=== PATIENT | male | born 1960 | race Caucasian/White ===

== ENCOUNTER 2018-01-24 12:02 | Inpatient (IN) | payer MEDICARE, OTHER ==
[~2018-01-24] VITALS: Ht 177.8 cm; Wt 127.0 kg
[~2018-01-24 12:02] MED LIST: ALBU90OI61 INH; Amlodipine-Ben1 EACH PO; ENOX40I SC; FENO145 PO; FURO40 PO; IBUP600 PO; Metformin HCl1000 MG PO; OXYC5 PO; POTA10T PO; PROM25 PO; Percocet 7.5-31 EACH PO; TRAM50 PO
[2018-01-29] MEDS ORDERED: TRAM50 PO (11:04)
[2018-02-08 06:24] LABS: BASOPHILS ABSOLUTE AUTO 0.02 K/mm3 (0.00-0.23); BASOPHILS PERCENT AUTO 0 % (0-2); EOSINOPHILS ABSOLUTE AUTO 0.07 K/mm3 (0.00-0.68); EOSINOPHILS PERCENT AUTO 1 % (0-6); Hematocrit 32.2 % (37.0-53.0); Hemoglobin 11.1 g/dL (13.5-17.5); IMMATURE GRAN ABSOLUTE AUTO 0.02 K/mm3 (0.00-0.10); IMMATURE GRAN PERCENT AUTO 0 % (0-1); LYMPHOCYTES PERCENT AUTO 22 % (21-46); MONOCYTES ABSOLUTE AUTO 0.94 K/mm3 (0.16-1.47); MONOCYTES PERCENT AUTO 8 % (4-13); Mean Corpuscular HGB 29.8 pg (26.0-34.0); Mean Corpuscular HGB Conc 34.5 g/dL (31.5-36.5); Mean Corpuscular Volume 86 fL (80-100); Mean Platelet Volume 10.6 fL (9.1-12.4); NEUTROPHILS ABSOLUTE AUTO 8.68 K/mm3 (1.96-9.15); NEUTROPHILS PERCENT AUTO 70 % (41-73); Platelet Count 224 K/mm3 (150-400); RDW Coefficient Variation 12.7 % (11.7-14.2); RDW Standard Deviation 39.6 fL (35.1-46.3); Red Blood Cell Count 3.73 M/mm3 (4.30-5.90); White Blood Cell Count 12.43 K/mm3 (4.00-11.30)
[2018-02-08 06:48] LABS: Anion Gap 6 mmol/L (6-16); Blood Urea Nitrogen 14 mg/dL (8-24); Bun/Creatinine Ratio 19.1 (12.0-20.0); CO2, Blood 28 mmol/L (21-32); Calcium, Blood 8.5 mg/dL (8.5-10.1); Chloride, Blood 102 mmol/L (98-108); Creatinine, Blood 0.73 mg/dL (0.60-1.20); Glomerular Filtration Rate >60 (60-); Glucose, Blood 193 mg/dL (70-99); Potassium, Blood 3.9 mmol/L (3.5-5.5); Sodium, Blood 136 mmol/L (136-145)
[2018-02-08] MEDS ORDERED: POTCHL20ER PO (11:16)
[2018-02-08] MEDS ORDERED: HYDMOR2 PO (11:18)
[2018-02-08] MEDS ORDERED: ASPI325EC PO (11:18)
[2018-02-08] MEDS ORDERED: PROM25 PO (11:19)
== END 2018-02-08 16:27 | disposition home or self-care (01) | DRG 470 ==
LOC: SURS 02-07 07:45 → PRE IP 02-07 10:00 → SURS 02-07 15:08
PROVIDERS: Orthopaedic Surgery
PROC: 8E0YXBZ Computer Assisted Procedure of Lower Extremity (ICD-10-PCS; 2018-02-07)
PROC: 0SRB04A Replacement of Left Hip Joint with Ceramic on Polyethylene Synthetic Substitute, Uncemented, Open Approach (ICD-10-PCS; principal; 2018-02-07 10:00)
DX: M16.12 Unilateral primary osteoarthritis, left hip (principal); Z68.41 Body mass index [BMI] 40.0-44.9, adult; E11.9 Type 2 diabetes mellitus without complications; E78.5 Hyperlipidemia, unspecified; I10 Essential (primary) hypertension; E11.42 Type 2 diabetes mellitus with diabetic polyneuropathy; M54.5 Low back pain; E66.9 Obesity, unspecified; G47.33 Obstructive sleep apnea (adult) (pediatric); Z88.2 Allergy status to sulfonamides; Z79.84 Long term (current) use of oral hypoglycemic drugs; Z79.899 Other long term (current) drug therapy
CPT/HCPCS: 36415; 72170; 80048; 82947; 83735; 85025; 88300; 97110; 97116; 97162; 97165; 97530; 97535; C1713; C1776; G8978; G8979; G8987; G8988; G8989; J0171; J0690; J0735; J1885; J2250; J2370; J2795; J3010; J3370; J7120

== ENCOUNTER → 2021-11-02 | Outpatient (CLI) | payer MEDICARE, OTHER ==
[~2021-11-02] MED LIST changes: +ASPI325EC PO; +HYDMOR2 PO; +POTCHL20ER PO
== END | disposition home or self-care (01) ==
LOC: LAB SHORT 18:52
DX: E11.65 Type 2 diabetes mellitus with hyperglycemia (principal)
CPT/HCPCS: 82043